=== PATIENT | female | born 1970 | race Caucasian/White ===

== ENCOUNTER 2017-06-08 14:31 | Emergency (ER) | payer MEDICARE, MEDICAID ==
[~2017-06-08] VITALS: Ht 170.2 cm; Wt 80.0 kg
[~2017-06-08 14:31] MED LIST: ASPIRIN 8181 MG PO; CREON3000 UNIT PO; ELIMITE5 % EX; ESCITALOPRAM OX10 MG PO; ESOMEPRAZOLE MA40 MG; FENOFIBRATE40 MG PO; FLEXERIL PO; GEODON60 MG OR; GLUCOPHAGE500 MG OR; HUMALOG100 MG/ML SC; LEXAPRO10 MG PO; LIPITOR20 M1 PO; LORTAB 10-325 M1 TAB PO; LORTAB 5/3255 MG PO; LORTAB 7.57.5 MG PO; LYRICA75 MG OR; METRONIDAZOL500 MG PO; NAPROSYN500 MG PO; NOVOLIN 70/30 SC; OXYCODONE HCL30 MG PO; PERCOCET 5/325M1 TAB OR; PRAVASTATIN SOD40 MG PO; PREVACID30 M3 PO; PROTONIX40 M1 IV; PROVENTIL IN; PROVENTIL INH17 GM IN; TOUJEO SOL300 UNIT/M SC; TRI-SPRINTEC OR; VICOPROFEN OR; VISTARIL50 MG OR; ZANTAC150 M1 PO; ZESTRIL/PRINIV2.5 MG PO; ZITHROMAX500 MG PO; ZOFRAN ODT4 MG PO; ZOLOFT100 MG OR; [UNRECOGNIZED DRUG - REMARK]
[2017-06-08 15:09] LABS: HEMATOCRIT 38.7 % (37.0-47.0); HEMOGLOBIN 12.7 g/dl (12.0-16.0); IMMATURE GRANULOCYTES 0.2 % (0.0-1.0); MEAN CELL VOLUME 91.3 fL CALC (80.0-100.0); MEAN CORPUSCULAR HGB CONC 32.8 g/L CALC (32.0-36.0); NEUT# 3.75 thou/uL (2.00-7.15); RED BLOOD COUNT 4.24 mill/uL (4.20-5.60); RED CELL DISTRI WIDTH 12.6 % (11.5-15.5)
[2017-06-08 15:53] LABS: ALBUMIN 3.5 g/dL (3.2-5.0); ALKALINE PHOSPHATASE 34 u/l (38-126); ANION GAP 16 (6-22 (CALC)); BUN 10 mg/dL (7-17); BUN/CREATININE RATIO 15 (12-20 (CALC)); CALCIUM 8.9 mg/dL (8.4-10.2); CARBON DIOXIDE 19 mmol/l (22-30); CHLORIDE 111 mmol/l (95-108); CREATININE 0.7 mg/dL (0.5-1.0); GFR > 60 ML/MIN (>=60 (CALC)); GFR FOR AFR.AMER. > 60 ML/MIN (>=60 (CALC)); GLUCOSE 68 mg/dL (65-105); POTASSIUM 3.7 mmol/l (3.5-5.1); SGOT/AST 15 u/l (14-36); SGPT/ALT 26 u/l (9-52); SODIUM 142 mmol/l (137-146); TOTAL PROTEIN 6.1 g/dL (6.3-8.2)
[2017-06-08 17:26] VITALS: BP 120/70
[2017-06-08] MEDS ORDERED: PREVACID30 M3 PO (17:27)
[2017-06-08] MEDS ORDERED: ZOFRAN ODT4 MG PO (17:27)
== END 2017-06-08 17:35 | disposition home or self-care (01) ==
LOC: ED 14:31
PROVIDERS: Emergency Medicine
DX: R10.13 Epigastric pain (principal); K21.0 Gastro-esophageal reflux disease with esophagitis; E11.9 Type 2 diabetes mellitus without complications; I10 Essential (primary) hypertension; E78.5 Hyperlipidemia, unspecified; J45.909 Unspecified asthma, uncomplicated; Z98.84 Bariatric surgery status

== ENCOUNTER 2017-08-28 19:06 | Emergency (ER) | payer MEDICARE, MEDICAID ==
[~2017-08-28] VITALS: Ht 170.2 cm; Wt 70.0 kg
[2017-08-28 20:29] LABS: HEMATOCRIT 45.3 % (37.0-47.0); IMMATURE GRANULOCYTES 0.4 % (0.0-1.0); MEAN CELL VOLUME 92.1 fL CALC (80.0-100.0); MEAN CORPUSCULAR HGB 30.5 pG CALC (26.0-32.0); MEAN CORPUSCULAR HGB CONC 33.1 g/L CALC (32.0-36.0); NEUT# 12.06 thou/uL (2.00-7.15); RED BLOOD COUNT 4.92 mill/uL (4.20-5.60); RED CELL DISTRI WIDTH 12.9 % (11.5-15.5)
[2017-08-28] MEDS ORDERED: OMEPRAZOLE10 MG PO (20:41)
[2017-08-28 20:47] LABS: ALBUMIN 3.9 g/dL (3.2-5.0); ALKALINE PHOSPHATASE 64 u/l (38-126); AMYLASE 47 u/l (30-110); ANION GAP 18 (6-22 (CALC)); BILIRUBIN, TOTAL 0.9 mg/dL (0.0-1.4); BUN 14 mg/dL (7-17); BUN/CREATININE RATIO 15 (12-20 (CALC)); CALCIUM 9.4 mg/dL (8.4-10.2); CARBON DIOXIDE 26 mmol/l (22-30); CHLORIDE 104 mmol/l (95-108); CREATININE 0.9 mg/dL (0.5-1.0); GFR > 60 ML/MIN (>=60 (CALC)); GFR FOR AFR.AMER. > 60 ML/MIN (>=60 (CALC)); GLUCOSE 160 mg/dL (65-105); LIPASE 148 u/l (23-300); POTASSIUM 4.5 mmol/l (3.5-5.1); SGOT/AST 20 u/l (14-36); SGPT/ALT 21 u/l (9-52); SODIUM 143 mmol/l (137-146); TOTAL PROTEIN 6.9 g/dL (6.3-8.2)
[2017-08-28 23:22] VITALS: BP 110/67
[2017-08-29] MEDS ORDERED: MIRALAX3350 N1 PO (01:33)
== END 2017-08-28 23:21 | disposition home or self-care (01) ==
LOC: ED 19:06
PROVIDERS: Emergency Medicine
DX: K59.00 Constipation, unspecified (principal); Z98.84 Bariatric surgery status

== ENCOUNTER 2017-11-28 21:27 | Emergency (ER) | payer MEDICARE, MEDICAID ==
[~2017-11-28] VITALS: Ht 170.2 cm; Wt 60.4 kg
[~2017-11-28 21:27] MED LIST changes: +MIRALAX3350 N1 PO; +OMEPRAZOLE10 MG PO
[2017-11-28 22:30] LABS: HEMATOCRIT 40.4 % (37.0-47.0); HEMOGLOBIN 13.4 g/dl (12.0-16.0); IMMATURE GRANULOCYTES 0.2 % (0.0-1.0); MEAN CELL VOLUME 94.2 fL CALC (80.0-100.0); MEAN CORPUSCULAR HGB 31.2 pG CALC (26.0-32.0); MEAN CORPUSCULAR HGB CONC 33.2 g/L CALC (32.0-36.0); NEUT# 3.71 thou/uL (2.00-7.15); RED BLOOD COUNT 4.29 mill/uL (4.20-5.60); RED CELL DISTRI WIDTH 12.4 % (11.5-15.5)
[2017-11-28 22:51] LABS: ALKALINE PHOSPHATASE 73 u/l (38-126); AMYLASE 70 u/l (30-110); ANION GAP 16 (6-22 (CALC)); BILIRUBIN, TOTAL 0.4 mg/dL (0.0-1.4); BUN 15 mg/dL (7-17); BUN/CREATININE RATIO 17 (12-20 (CALC)); CALCIUM 9.8 mg/dL (8.4-10.2); CARBON DIOXIDE 25 mmol/l (22-30); CHLORIDE 107 mmol/l (95-108); CREATININE 0.9 mg/dL (0.5-1.0); GFR > 60 ML/MIN (>=60 (CALC)); GFR FOR AFR.AMER. > 60 ML/MIN (>=60 (CALC)); GLUCOSE 87 mg/dL (65-105); LIPASE 281 u/l (23-300); SGOT/AST 138 u/l (14-36); SGPT/ALT 56 u/l (9-52); SODIUM 144 mmol/l (137-146); TOTAL PROTEIN 6.6 g/dL (6.3-8.2)
[2017-11-29 01:50] VITALS: BP 108/66
== END 2017-11-29 01:50 | disposition home or self-care (01) ==
LOC: ED 21:27
PROVIDERS: Emergency Medicine
DX: R10.13 Epigastric pain (principal); R10.12 Left upper quadrant pain; R11.2 Nausea with vomiting, unspecified; Z98.84 Bariatric surgery status; K85.90 Acute pancreatitis without necrosis or infection, unspecified
CPT/HCPCS: S0164

== ENCOUNTER → 2019-01-14 | Outpatient (REF) | payer MEDICARE, MEDICAID ==
[2019-01-14 08:19] LABS: HEMATOCRIT 41.2 % (37.0-47.0); IMMATURE GRANULOCYTES 0.2 % (0.0-5.0); MEAN CELL VOLUME 95.6 fL CALC (80.0-100.0); MEAN CORPUSCULAR HGB 30.2 pG CALC (26.0-32.0); MEAN CORPUSCULAR HGB CONC 31.6 g/L CALC (32.0-36.0); NEUT# 3.45 thou/uL (2.00-7.15); RED BLOOD COUNT 4.31 mill/uL (4.20-5.60)
[2019-01-14 08:46] LABS: ALBUMIN 3.9 g/dL (3.2-5.0); ALKALINE PHOSPHATASE 47 u/l (38-126); ANION GAP 13 (6-22 (CALC)); BILIRUBIN, TOTAL 0.6 mg/dL (0.0-1.4); BUN 18 mg/dL (7-17); BUN/CREATININE RATIO 20 (12-20 (CALC)); CARBON DIOXIDE 28 mmol/l (22-30); CHLORIDE 105 mmol/l (95-108); CREATININE 0.9 mg/dL (0.5-1.0); GFR > 60 ML/MIN (>=60 (CALC)); GFR FOR AFR.AMER. > 60 ML/MIN (>=60 (CALC)); MAGNESIUM 1.8 mg/dL (1.6-2.3); POTASSIUM 4.4 mmol/l (3.5-5.1); SODIUM 142 mmol/l (137-146); TOTAL PROTEIN 6.6 g/dL (6.3-8.2)
[2019-01-14 09:02] LABS: SGOT/AST 28 u/l (14-36)
== END | disposition home or self-care (01) ==
LOC: LAB 06:40
PROVIDERS: ATTEND Internal Medicine Cardiovascular Disease
DX: I25.10 Atherosclerotic heart disease of native coronary artery without angina pectoris (principal); I10 Essential (primary) hypertension; N18.2 Chronic kidney disease, stage 2 (mild)

== ENCOUNTER 2020-08-13 16:06 | Emergency (ER) | payer OTHER, MEDICARE, MEDICAID ==
[~2020-08-13] VITALS: Ht 170.2 cm; Wt 80.0 kg
[2020-08-13 18:47] VITALS: BP 132/79
== END 2020-08-13 18:45 | disposition home or self-care (01) | DRG 552 ==
LOC: ED 16:06
DX: S16.1XXA Strain of muscle, fascia and tendon at neck level, initial encounter (principal); S29.012A Strain of muscle and tendon of back wall of thorax, initial encounter; V43.52XA Car driver injured in collision with other type car in traffic accident, initial encounter

== ENCOUNTER 2021-11-27 01:50 | Emergency (ER) | payer MEDICARE, MEDICAID ==
[~2021-11-27] VITALS: Ht 172.7 cm; Wt 70.0 kg
[2021-11-27 01:50] VITALS: BP 116/80
== END 2021-11-27 02:33 | disposition left against medical advice (07) ==
LOC: ED 01:50
DX: R42 Dizziness and giddiness (principal); R53.1 Weakness; Z91.19 Patient's noncompliance with other medical treatment and regimen

== ENCOUNTER 2022-04-05 15:45 | Emergency (ER) | payer OTHER, MEDICARE, MEDICAID ==
[~2022-04-05] VITALS: Ht 172.7 cm; Wt 90.0 kg
[2022-04-05 16:35] VITALS: BP 135/90
[2022-04-05] MEDS ORDERED: VOLTAREN1%GEL TOP (18:44)
[2022-04-05 19:03] VITALS: BP 135/90
== END 2022-04-05 19:10 | disposition home or self-care (01) | DRG 552 ==
LOC: ED 15:45
DX: M54.50 Low back pain, unspecified (principal); M25.551 Pain in right hip; M25.561 Pain in right knee; M25.531 Pain in right wrist; V03.00XA Pedestrian on foot injured in collision with car, pick-up truck or van in nontraffic accident, initial encounter; Y92.481 Parking lot as the place of occurrence of the external cause